=== PATIENT | male | born 1980 | race Caucasian/White ===

== ENCOUNTER 2018-06-05 17:47 | Emergency (ER) | payer MEDICAID ==
[~2018-06-05] VITALS: Ht 180.3 cm; Wt 59.4 kg
[~2018-06-05 17:47] MED LIST: ASPI-482 PO; CALC200T3 PO; HYDR100C2 PO; LOPE2CAP PO; METO-269 PO; NITR0.4T22 SL; OLAN5TAB3 PO; OXCA150T3 PO; OXCA300T3 PO
[2018-06-05 18:57] LABS: BASO % 0 % (0-3); EOS # 0.2 x10^3/uL (0.0-0.7); EOS % 3 % (0-3); HEMOGLOBIN 13.6 g/dL (13.0-17.5); LYMPH % 33 % (24-48); MEAN CORPUSCULAR HEMOGLOBIN 31 pg (25-35); MEAN CORPUSCULAR HGB CONC 35 g/dL (31-37); MEAN CORPUSCULAR VOLUME 89 fL (79-100); MONO # 0.7 x10^3/uL (0.0-1.1); MONO % 11 % (0-9); NEUT # 3.2 x10^3uL (1.8-7.7); NEUT % 54 % (31-73); PLATELET COUNT 269 x10^3/uL (140-400); RED BLOOD COUNT 4.37 x10^6/uL (4.30-5.70)
[2018-06-05 19:10] LABS: CALCIUM 8.9 mg/dL (8.5-10.1); CREATININE 0.8 mg/dL (0.7-1.3); GFR 107.1; POTASSIUM 3.5 mmol/L (3.5-5.1)
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
[2018-06-05 19:16] LABS: ALBUMIN 3.1 g/dL (3.4-5.0); ALBUMIN/GLOBULIN RATIO 0.8 (1.0-1.7); TOTAL BILIRUBIN 0.2 mg/dL (0.2-1.0)
[2018-06-05 22:30] VITALS: BP 114/67
== END 2018-06-05 22:30 | disposition home or self-care (01) ==
LOC: ER 17:47
DX: F20.9 Schizophrenia, unspecified (principal); G40.909 Epilepsy, unspecified, not intractable, without status epilepticus; E78.00 Pure hypercholesterolemia, unspecified; I25.2 Old myocardial infarction; F43.10 Post-traumatic stress disorder, unspecified; F32.9 Major depressive disorder, single episode, unspecified; F17.200 Nicotine dependence, unspecified, uncomplicated; Z95.5 Presence of coronary angioplasty implant and graft; Z88.8 Allergy status to other drugs, medicaments and biological substances; Z91.041 Radiographic dye allergy status; Z88.5 Allergy status to narcotic agent; Z88.0 Allergy status to penicillin; Z91.013 Allergy to seafood
CPT/HCPCS: 36415; 80053; 85025; 99284

== ENCOUNTER 2018-06-09 21:08 | Emergency (ER) | payer MEDICAID ==
[~2018-06-09] VITALS: Ht 170.2 cm; Wt 59.4 kg
[2018-06-09] MEDS: levETIRAcetam 1,000 MG in IV DEXTROSE 5% 100ML 100 ML IV ONE (21:56)
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
[2018-06-09] MEDS ORDERED: LEVE500T56 PO (22:06)
[2018-06-09 23:00] VITALS: BP 91/53
== END 2018-06-10 00:35 | disposition home or self-care (01) ==
LOC: ER 21:08
DX: G40.909 Epilepsy, unspecified, not intractable, without status epilepticus (principal); M19.90 Unspecified osteoarthritis, unspecified site; F32.9 Major depressive disorder, single episode, unspecified; E78.00 Pure hypercholesterolemia, unspecified; I25.2 Old myocardial infarction; F17.210 Nicotine dependence, cigarettes, uncomplicated; Z88.0 Allergy status to penicillin; Z88.8 Allergy status to other drugs, medicaments and biological substances; Z91.041 Radiographic dye allergy status; Z91.013 Allergy to seafood
CPT/HCPCS: 96365; 96366; 99285; J1953

== ENCOUNTER 2019-05-19 15:43 | Observation (INO) | payer SELFPAY ==
[~2019-05-19] VITALS: Ht 180.3 cm; Wt 80.4 kg
[~2019-05-19 15:43] MED LIST changes: +LEVE500T56 PO
--- NOTE | 2019-05-19 16:09 | PHYS DOC ---
Past Medical History Past Medical History: Arthritis, Depression, High Cholesterol, [place], Seizure, Schizophrenia, Other Additional Past Medical Histor: PTSD,GASTRITIS,MILD INTELLECTUAL,L VENT EF LOW,EPILEPSY Past Surgical History: Angioplasty, Other Additional Past Surgical Histo: CARDIAC XTENTS,L LEG BX Smoking: Cigarettes Alcohol Use: None Drug Use: None Adult General Chief Complaint Chief Complaint: CHEST PAIN HPI HPI Patient is a 39-year-old male who presents to the emergency department for evaluation. He states for the past hour has been having sharp anterior chest discomfort radiating down his left arm, with a pressure component as well. The p ain feels similar to her prior "heart attack" that he has had. He has not had any shortness of breath. There are no alleviating or exacerbating factors to his symptoms. He states he the pain feels the same as his prior episode of cardiac chest pain, where he had a stent placed in [place] in June 2018. He was given 324 mg of aspirin by EMS prior to arrival. He denies any shortness of breath, diaphoresis, nausea, or vomiting. There are no alleviating or exacerbating factors to his symptoms otherwise. Review of Systems Review of Systems Constitutional: Denies fever or chills [] Eyes: Denies change in visual acuity, redness, or eye pain [] HENT: Denies nasal congestion or sore throat [] Respiratory: Denies cough or shortness of breath [] Cardiovascular: No additional information not addressed in HPI [] GI: Denies abdominal pain, nausea, vomiting, bloody stools or diarrhea [] : Denies dysuria or hematuria [] Musculoskeletal: Denies back pain or joint pain [] Integument: Denies rash or skin lesions [] Neurologic: Denies headache, focal weakness or sensory changes [] Endocrine: Denies polyuria or polydipsia [] All other systems were reviewed and found to be within normal limits, except as documented in this note. Current Medications Current Medications Current Medications Medications (Trade) Dose Ordered Sig/Nell Start Time Stop Time Status Last Admin Dose Admin Aspirin (Children'S Aspirin) 324 mg 1X ONCE 05/19/19 16:30 05/19/19 16:31 DC Allergies Allergies Allergies Coded Allergies Type Severity Reaction Last Updated Verified Iodine and Iodide Containing Produc Allergy Intermediate hives 04/22/17 Yes Penicillins Allergy Intermediate Hives 10/31/18 Yes broccoli Allergy Intermediate 06/05/18 Yes morphine Allergy Intermediate 06/05/18 Yes shellfish derived Allergy Intermediate 06/05/18 Yes chlorpromazine Adverse Reaction Intermediate sweats 04/22/17 Yes Physical Exam Physical Exam PHYSICAL EXAM: CONSTITUTIONAL: Well developed, well nourished HEAD: normocephalic, atraumatic EENT: PERRL, EOMI. Conjunctivae normal color, sclerae non-icteric; moist mucous membranes. NECK: Supple, non-tender; no meningismus. LUNGS: Lungs CTA, breathing even and unlabored. Normal air movement. HEART: Regular rate and rhythm, no murmur CHEST: No deformity; non-tender ABDOMEN: The abdomen is soft, and non-tender, no masses or bruits. EXTREM: Normal ROM; no deformity, no calf tenderness. Normal pulses palpable in all extremities. There is no pedal edema. SKIN: No rash; no diaphoresis NEURO: Alert; normal speech and cognition; CN's grossly intact; strength grossly intact without focal deficit. BACK: No CVA TTP. Current Patient Data Vital Signs Vital Signs Date Time Temp Pulse Resp B/P (MAP) Pulse Ox O2 Delivery O2 Flow Rate FiO2 05/19/19 15:50 97.9 89 19 124/73 (90) 99 Room Air 97.9 Lab Values Laboratory Tests Test 05/19/19 16:05 05/19/19 16:40 White Blood Count 4.0 x10^3/uL (4.0-11.0) Red Blood Count 4.37 x10^6/uL (4.30-5.70) Hemoglobin 13.6 g/dL (13.0-17.5) Hematocrit 39.7 % (39.0-53.0) Mean Corpuscular Volume 91 fL (79-100) Mean Corpuscular Hemoglobin 31 pg (25-35) Mean Corpuscular Hemoglobin Concent 34 g/dL (31-37) Red Cell Distribution Width 13.2 % (11.5-14.5) Platelet Count 168 x10^3/uL (140-400) Neutrophils (%) (Auto) 59 % (31-73) Lymphocytes (%) (Auto) 29 % (24-48) Monocytes (%) (Auto) 11 % (0-9) H Eosinophils (%) (Auto) 1 % (0-3) Basophils (%) (Auto) 1 % (0-3) Neutrophils # (Auto) 2.3 x10^3/uL (1.8-7.7) Lymphocytes # (Auto) 1.2 x10^3/uL (1.0-4.8) Monocytes # (Auto) 0.4 x10^3/uL (0.0-1.1) Eosinophils # (Auto) 0.0 x10^3/uL (0.0-0.7) Basophils # (Auto) 0.0 x10^3/uL (0.0-0.2) Prothrombin Time 12.4 SEC (11.7-14.0) Prothrombin Time INR 1.0 (0.8-1.1) Laboratory Tests 05/19/19 16:05 EKG EKG []Normal sinus rhythm at a rate of 89 bpm, normal axis, normal intervals. There are no acute ischemic ST/T changes. Radiology/Procedures Radiology/Procedures PROCEDURE: PORTABLE CHEST 1V PORTABLE CHEST 1V Clinical indications: Chest pain today. COMPARISON: April 22, 2017. Findings: No acute lung infiltrate or pleural effusion or pulmonary edema or lung mass or pneumothorax is seen. The heart size, pulmonary vasculature, mediastinum and both derick are unremarkable. Impression: No acute radiographic abnormality is seen. [] Course & Med Decision Making Course & Med Decision Making Pertinent Labs and Imaging studies reviewed. (See chart for details) [] 5:00 PM:The patient's condition remains stable. I spoke with the hospitalist, who accepted the patient to the hospital for further evaluation and treatment. Dragon Disclaimer Dragon Disclaimer This electronic medical record was generated, in whole or in part, using a voice recognition dictation system. Departure Departure Impression: Primary Impression: Chest pain Disposition: ADMITTED INPATIENT Admitting Physician: HIMRobin Condition: STABLE Referrals: NO PCP (PCP) JAMESON GOLDBERG MD May 19, 2019 16:09
[2019-05-19 16:14] LABS: BASO % 1 % (0-3); EOS % 1 % (0-3); HEMATOCRIT 39.7 % (39.0-53.0); HEMOGLOBIN 13.6 g/dL (13.0-17.5); LYMPH # 1.2 x10^3/uL (1.0-4.8); LYMPH % 29 % (24-48); MEAN CORPUSCULAR HEMOGLOBIN 31 pg (25-35); MEAN CORPUSCULAR HGB CONC 34 g/dL (31-37); MEAN CORPUSCULAR VOLUME 91 fL (79-100); MONO # 0.4 x10^3/uL (0.0-1.1); MONO % 11 % (0-9); NEUT # 2.3 x10^3/uL (1.8-7.7); NEUT % 59 % (31-73); PLATELET COUNT 168 x10^3/uL (140-400); RED BLOOD COUNT 4.37 x10^6/uL (4.30-5.70); RED CELL DISTRIBUTION WIDTH 13.2 % (11.5-14.5)
--- NOTE | 2019-05-19 16:26 | EKG ---
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
[2019-05-19] MEDS ORDERED: ASPIRIN CHEWABLE 81 MG TABLET. PO ONE (16:30)
--- NOTE | 2019-05-19 16:32 | RAD ---
PORTABLE CHEST 1V Clinical indications: Chest pain today. COMPARISON: April 22, 2017. Findings: No acute lung infiltrate or pleural effusion or pulmonary edema or lung mass or pneumothorax is seen. The heart size, pulmonary vasculature, mediastinum and both derick are unremarkable. Impression: No acute radiographic abnormality is seen. Electronically signed by: Tanvir Avilez MD (05/19/2019 4:28 PM) [id number]
[2019-05-19 16:54] LABS: PROTHROMBIN TIME PATIENT 12.4 SEC (11.7-14.0)
[2019-05-19 16:58] LABS: CALCIUM 9.2 mg/dL (8.5-10.1); CREATININE 0.7 mg/dL (0.7-1.3); GFR 124.3; POTASSIUM 3.9 mmol/L (3.5-5.1)
[2019-05-19 17:04] LABS: ALBUMIN 3.3 g/dL (3.4-5.0); TOTAL BILIRUBIN 0.2 mg/dL (0.2-1.0); TOTAL PROTEIN 6.6 g/dL (6.4-8.2)
[2019-05-19] MEDS ORDERED: NITROGLYCERIN OINT 1 GM PACKET. TP ONE (17:15)
[2019-05-19] MEDS ORDERED: fentaNYL PF VIAL 100 MCG/2 ML VIAL IVP PRN (17:30)
[2019-05-19] MEDS ORDERED: NITROGLYCERIN SUBLINGUAL 0.4 MG BOTTLE OF 25. SL PRN (17:30)
[2019-05-19] MEDS ORDERED: ONDANSETRON PF 4 MG/2 ML VIAL. IVP PRN (17:30)
[2019-05-19] MEDS ORDERED: guaiFENesin DM 200MG/20MG 10 ML SYRUP PO PRN (17:30)
[2019-05-19] MEDS ORDERED: traMADol 50 MG TABLET PO PRN (17:30)
[2019-05-19] MEDS ORDERED: LOPERAMIDE 2 MG CAPSULE PO PRN (17:30)
[2019-05-19] MEDS ORDERED: ZOLPIDEM 5 MG TABLET. PO PRN (17:30)
[2019-05-19] MEDS ORDERED: ACETAMINOPHEN 500 MG TABLET PO PRN (17:30)
[2019-05-19] MEDS ORDERED: NICOTINE 21MG PATCH. TD PRN (17:30)
[2019-05-19] MEDS ORDERED: ALBUTEROL SULFATE 2.5 MG/3 ML NEBU. NEB PRN (17:30)
[2019-05-19] MEDS ORDERED: CALCIUM CARBONATE 500 MG TAB.CHEW PO PRN (17:30)
[2019-05-19 19:39] VITALS: BP 137/79
--- NOTE | 2019-05-19 19:43 | PDOC1 ---
History and Physical Date of Admission Date of Admission DATE: 05/19/19 TIME: 19:37 Identification/Chief Complaint Chief Complaint cp at rest Source Source: Caregiver, Chart review, Patient History of Present Illness History of Present Illness Homeless, had left sided CP while waiting for his ride today, radiated to left arm, no presyncopal or diaphoresis sxs. HAs 1 CAD stent done in [place] 2017. SMoker, FAm hx CAD, non DM, ODd behavior, on certain meds at home for this. TRop and CXR , EKG reassuring. Admitted for CP r.o. HAs psoriasis plaques, used hydrocortisone cream in past, ran out Past Medical History Cardiovascular: CHF, HTN, CA, Hyperlipidemia CENTRAL NERVOUS SYSTEM: Seizure GI: GERD Heme/Onc: No pertinent hx Hepatobiliary: No pertinent hx Psych: Anxiety, Depression, Schizophrenia, Other Rheumatologic: No pertinent hx Infectious disease: No pertinent hx Renal/: No pertinent hx Endocrine: No pertinent hx Dermatology: Other (psoriasis) Past Surgical History Past Surgical History: Other (CAD 1 stent, thigh rt biopsy ) Family History Family History: Diabetes, Heart Disease Social History Smoke: No ALCOHOL: none Drugs: Marijuana Current Medications Current Medications Current Medications Aspirin (Children'S Aspirin) 324 mg 1X ONCE PO ; Start 05/19/19 at 16:30; Stop 05/19/19 at 16:31; Status DC Nitroglycerin (Nitro-Bid Oint) 1 inch 1X ONCE TP Last administered on 05/19/19at 17:49; Start 05/19/19 at 17:15; Stop 05/19/19 at 17:16; Status DC Acetaminophen (Tylenol) 500 mg PRN Q6HRS PRN PO MILD PAIN / TEMP; Start 05/19/19 at 17:30 Tramadol HCl (Ultram) 50 mg PRN Q6HRS PRN PO PAIN; Start 05/19/19 at 17:30; Status UNV Fentanyl Citrate (Fentanyl 2ml Vial) 50 mcg PRN Q2HR PRN IVP MODERATE TO SEVERE PAIN; Start 05/19/19 at 17:30 Zolpidem Tartrate (Ambien) 5 mg PRN QHS PRN PO INSOMNIA; Start 05/19/19 at 17:30 Nicotine (Nicoderm Cq 21mg) 1 patch PRN DAILY PRN TD SMOKING CESSATION; Start 05/19/19 at 17:30 Ondansetron HCl (Zofran) 4 mg PRN Q6HRS PRN IVP NAUSEA/VOMITING; Start 05/19/19 at 17:30 Calcium Carbonate/ Glycine (Tums) 500 mg PRN AFTMEALHC PRN PO INDIGESTION; Start 05/19/19 at 17:30 Guaifenesin (Robitussin Dm) 10 ml PRN Q6HRS PRN PO COUGH; Start 05/19/19 at 17:30 Nitroglycerin (Nitrostat) 0.4 mg PRN Q5MIN PRN SL CHEST PAIN; Start 05/19/19 at 17:30 Albuterol Sulfate (Ventolin Neb Soln) 2.5 mg PRN Q4HRS PRN NEB SHORTNESS OF BREATH; Start 05/19/19 at 17:30 Aspirin (Ecotrin) 81 mg DAILY PO ; Start 05/20/19 at 09:00 Calcium Carbonate/ Glycine (Tums) 500 mg TID PO ; Start 05/19/19 at 21:00 Levetiracetam (Keppra) 750 mg BID PO ; Start 05/19/19 at 21:00 Loperamide HCl (Imodium) 2 mg PRN QID PRN PO DIARRHEA; Start 05/19/19 at 17:30 Olanzapine (ZyPREXA) 5 mg DAILY PO ; Start 05/20/19 at 09:00 Oxcarbazepine (Trileptal) 300 mg QHS PO ; Start 05/19/19 at 21:00 Oxcarbazepine (Trileptal) 300 mg DAILY PO ; Start 05/20/19 at 09:00 Hydroxyzine HCl (Atarax) 100 mg Q6HRS PO ; Start 05/19/19 at 18:00 Non-Formulary Medication (Metoprolol Succinate (Toprol Xl)) 1 tab BID PO ; Start 05/19/19 at 21:00; Status UNV Active Scripts Active Keppra (Levetiracetam) 500 Mg Tablet 1.5 Tab PO BID Reported Loperamide (Loperamide Hcl) 2 Mg Capsule 2 Mg PO PRN PRN Trileptal (Oxcarbazepine) 300 Mg Tablet 300 Mg PO DAILY Hydroxyzine Pamoate 100 Mg Capsule 100 Mg PO Q6HRS Tums (Calcium Carbonate) 200 Mg Tab.chew 200 Mg PO TID Zyprexa (Olanzapine) 5 Mg Tablet 5 Mg PO DAILY Trileptal (Oxcarbazepine) 300 Mg Tablet 1 Tab PO QHS NITROGLYCERIN SubLingual (Nitroglycerin) 0.4 Mg Tab.subl 0.4 Mg SL PRN Q5MIN PRN Aspir 81 (Aspirin) 81 Mg Tablet.dr 1 Tab PO DAILY Toprol Xl (Metoprolol Succinate) 50 Mg Tab.er.24h 1 Tab PO BID Allergies Allergies: Coded Allergies: Iodine and Iodide Containing Produc (Verified Allergy, Intermediate, hives, 04/22/17) Penicillins (Verified Allergy, Intermediate, Hives, 06/09/18) broccoli (Verified Allergy, Intermediate, 06/05/18) morphine (Verified Allergy, Intermediate, 06/05/18) shellfish derived (Verified Allergy, Intermediate, 06/05/18) chlorpromazine (Verified Adverse Reaction, Intermediate, sweats, 04/22/17) ROS Review of System as per hPI, all else is neg Physical Exam General: Alert, Oriented X3, Cooperative, No acute distress HEENT: Atraumatic, PERRLA, EOMI Lungs: Clear to auscultation, Normal air movement Heart: S1S2, RRR, no thrills, no rubs, no gallops, no murmurs Cardiovascular: S1, S2 Abdomen: Normal bowel sounds, Soft, No tenderness, No hepatosplenomegaly, No masses Male Genitals Exam: normal genitalia, normal prostate Rectal Exam: not examined PELVIC: Nml ext genitalia Extremities: No clubbing, No cyanosis, No edema, Normal pulses, No t enderness/swelling, Other (psoriasis plaques, scaly, silver) Neuro: Normal gait, Normal speech, Strength at 5/5 X4 ext, Normal tone, Sensation intact, Cranial nerves 3-12 NL, Reflexes 2+ Vitals Vitals Vital Signs Date Time Temp Pulse Resp B/P (MAP) Pulse Ox O2 Delivery O2 Flow Rate FiO2 05/19/19 17:49 99 123/72 05/19/19 17:47 16 100 Room Air 05/19/19 15:50 97.9 97.9 Labs Labs Laboratory Tests Test 05/19/19 16:05 05/19/19 16:40 White Blood Count 4.0 x10^3/uL (4.0-11.0) Red Blood Count 4.37 x10^6/uL (4.30-5.70) Hemoglobin 13.6 g/dL (13.0-17.5) Hematocrit 39.7 % (39.0-53.0) Mean Corpuscular Volume 91 fL (79-100) Mean Corpuscular Hemoglobin 31 pg (25-35) Mean Corpuscular Hemoglobin Concent 34 g/dL (31-37) Red Cell Distribution Width 13.2 % (11.5-14.5) Platelet Count 168 x10^3/uL (140-400) Neutrophils (%) (Auto) 59 % (31-73) Lymphocytes (%) (Auto) 29 % (24-48) Monocytes (%) (Auto) 11 % (0-9) Eosinophils (%) (Auto) 1 % (0-3) Basophils (%) (Auto) 1 % (0-3) Neutrophils # (Auto) 2.3 x10^3/uL (1.8-7.7) Lymphocytes # (Auto) 1.2 x10^3/uL (1.0-4.8) Monocytes # (Auto) 0.4 x10^3/uL (0.0-1.1) Eosinophils # (Auto) 0.0 x10^3/uL (0.0-0.7) Basophils # (Auto) 0.0 x10^3/uL (0.0-0.2) Prothrombin Time 12.4 SEC (11.7-14.0) Prothromb Time International Ratio 1.0 (0.8-1.1) Sodium Level 148 mmol/L (136-145) Potassium Level 3.9 mmol/L (3.5-5.1) Chloride Level 107 mmol/L (98-107) Carbon Dioxide Level 33 mmol/L (21-32) Anion Gap 8 (6-14) Blood Urea Nitrogen 15 mg/dL (8-26) Creatinine 0.7 mg/dL (0.7-1.3) Estimated GFR (Cockcroft-Gault) 124.3 BUN/Creatinine Ratio 21 (6-20) Glucose Level 86 mg/dL (70-99) Calcium Level 9.2 mg/dL (8.5-10.1) Total Bilirubin 0.2 mg/dL (0.2-1.0) Aspartate Amino Transf (AST/SGOT) 12 U/L (15-37) Alanine Aminotransferase (ALT/SGPT) 18 U/L (16-63) Alkaline Phosphatase 93 U/L (46-116) Creatine Kinase 115 U/L (39-308) Creatine Kinase MB (Mass) 1.4 ng/mL (0.0-3.6) Creatine Kinase MB Relative Index 1.2 % (0-4) Troponin I Quantitative < 0.017 ng/mL (0.000-0.055) UB-Ley-V-Type Natriuretic Peptide 37 pg/mL (0-124) Total Protein 6.6 g/dL (6.4-8.2) Albumin 3.3 g/dL (3.4-5.0) Albumin/Globulin Ratio 1.0 (1.0-1.7) Laboratory Tests Test 05/19/19 16:05 05/19/19 16:40 White Blood Count 4.0 x10^3/uL (4.0-11.0) Red Blood Count 4.37 x10^6/uL (4.30-5.70) Hemoglobin 13.6 g/dL (13.0-17.5) Hematocrit 39.7 % (39.0-53.0) Mean Corpuscular Volume 91 fL (79-100) Mean Corpuscular Hemoglobin 31 pg (25-35) Mean Corpuscular Hemoglobin Concent 34 g/dL (31-37) Red Cell Distribution Width 13.2 % (11.5-14.5) Platelet Count 168 x10^3/uL (140-400) Neutrophils (%) (Auto) 59 % (31-73) Lymphocytes (%) (Auto) 29 % (24-48) Monocytes (%) (Auto) 11 % (0-9) Eosinophils (%) (Auto) 1 % (0-3) Basophils (%) (Auto) 1 % (0-3) Neutrophils # (Auto) 2.3 x10^3/uL (1.8-7.7) Lymphocytes # (Auto) 1.2 x10^3/uL (1.0-4.8) Monocytes # (Auto) 0.4 x10^3/uL (0.0-1.1) Eosinophils # (Auto) 0.0 x10^3/uL (0.0-0.7) Basophils # (Auto) 0.0 x10^3/uL (0.0-0.2) Prothrombin Time 12.4 SEC (11.7-14.0) Prothromb Time International Ratio 1.0 (0.8-1.1) Sodium Level 148 mmol/L (136-145) Potassium Level 3.9 mmol/L (3.5-5.1) Chloride Level 107 mmol/L (98-107) Carbon Dioxide Level 33 mmol/L (21-32) Anion Gap 8 (6-14) Blood Urea Nitrogen 15 mg/dL (8-26) Creatinine 0.7 mg/dL (0.7-1.3) Estimated GFR (Cockcroft-Gault) 124.3 BUN/Creatinine Ratio 21 (6-20) Glucose Level 86 mg/dL (70-99) Calcium Level 9.2 mg/dL (8.5-10.1) Total Bilirubin 0.2 mg/dL (0.2-1.0) Aspartate Amino Transf (AST/SGOT) 12 U/L (15-37) Alanine Aminotransferase (ALT/SGPT) 18 U/L (16-63) Alkaline Phosphatase 93 U/L (46-116) Creatine Kinase 115 U/L (39-308) Creatine Kinase MB (Mass) 1.4 ng/mL (0.0-3.6) Creatine Kinase MB Relative Index 1.2 % (0-4) Troponin I Quantitative < 0.017 ng/mL (0.000-0.055) EB-Rsg-L-Type Natriuretic Peptide 37 pg/mL (0-124) Total Protein 6.6 g/dL (6.4-8.2) Albumin 3.3 g/dL (3.4-5.0) Albumin/Globulin Ratio 1.0 (1.0-1.7) VTE Prophylaxis Ordered VTE Prophylaxis Devices: Yes VTE Pharmacological Prophylaxi: Yes Assessment/Plan Assessment/Plan CP in an adult at rest Atypical CP CAD with 1 cardiac stent - 2017 [place] - claims on ASA 81 and eliquis ONCE A DAY - we are verifying with his pharmacy SMoker - yassine patch, counselled Fam hx CAD Psoriasis - dovonex cream unavail, do hydrocort cream instead FULL CODE seen at DAYANA JEAN BAPTISTE MD May 19, 2019 19:43
[2019-05-19] MEDS ORDERED: HYDROCORTISONE 1% TOPICAL OINTMENT 30GM TUBE. TP PRN (19:45)
[2019-05-19] MEDS: levETIRAcetam 500 MG TABLET PO SCH (20:56)
[2019-05-19] MEDS: hydrOXYzine 25 MG TABLET PO SCH (20:56)
[2019-05-19] MEDS: CALCIUM CARBONATE 500 MG TAB.CHEW PO SCH (20:56)
[2019-05-19] MEDS: APIXABAN 5 MG TABLET. PO SCH (20:56)
[2019-05-19] MEDS ORDERED: OXcarbazepine 300 MG TABLET PO SCH (21:00)
[2019-05-19] MEDS: NON FORMULARY ITEM (Metoprolol Succinate (Toprol Xl) 1 TAB) PO SCH (21:00)
[2019-05-19 22:32] VITALS: BP 102/54
[2019-05-20 03:00] VITALS: BP 105/67
[2019-05-20] MEDS: hydrOXYzine 25 MG TABLET PO SCH ×4 (06:00→13:36)
[2019-05-20 07:00] VITALS: BP 95/56
[2019-05-20] MEDS: CALCIUM CARBONATE 500 MG TAB.CHEW PO SCH ×2 (08:45→13:36)
[2019-05-20] MEDS: levETIRAcetam 500 MG TABLET PO SCH (08:46)
[2019-05-20] MEDS: APIXABAN 5 MG TABLET. PO SCH (08:46)
[2019-05-20] MEDS ORDERED: DIVA500T2 PO ×2 (08:50)
[2019-05-20] MEDS ORDERED: ALBU2.5V8 IH (08:52)
[2019-05-20] MEDS ORDERED: ASPIRIN ENTERIC COATED 81 MG TABLET.DR. PO SCH (09:00)
[2019-05-20] MEDS ORDERED: OXcarbazepine 300 MG TABLET PO SCH (09:00)
[2019-05-20] MEDS ORDERED: OLANZapine 5 MG TABLET PO SCH (09:00)
[2019-05-20] MEDS: NON FORMULARY ITEM (Metoprolol Succinate (Toprol Xl) 1 TAB) PO SCH (09:00)
--- NOTE | 2019-05-20 10:55 | PDOC ---
[employer] PROGRESS NOTE Chief Complaint Chief Complaint Chest pain History of Present Illness History of Present Illness 05/20/19 Pt seen and examined Pt was sitting up watching TV and eating breakfast Pt states he is homeless and doesn't have somewhere to go. He wants a hotel voucher if possible Denies any pain today and is feeling better DW RN Vitals/I&O Vitals/I&O: Vital Signs Date Time Temp Pulse Resp B/P (MAP) Pulse Ox O2 Delivery O2 Flow Rate FiO2 05/20/19 08:00 Room Air 05/20/19 07:00 97.3 76 20 95/56 (69) 97 97.3 I & O 05/19/19 05/19/19 05/20/19 14:59 22:59 06:59 Intake Total 400 ml 720 ml Balance 400 ml 720 ml Physical Exam General: Alert, Oriented X3, Cooperative, No acute distress Abdomen: Normal bowel sounds, Soft, No tenderness, No hepatosplenomegaly, No masses Extremities: No clubbing, No cyanosis, No edema, Normal pulses, No tenderness/swelling, Other (psoriasis plaques, scaly, silver) Labs Labs: Laboratory Tests Test 05/19/19 16:05 05/19/19 16:40 05/19/19 22:00 05/20/19 02:30 White Blood Count 4.0 x10^3/uL (4.0-11.0) Red Blood Count 4.37 x10^6/uL (4.30-5.70) Hemoglobin 13.6 g/dL (13.0-17.5) Hematocrit 39.7 % (39.0-53.0) Mean Corpuscular Volume 91 fL (79-100) Mean Corpuscular Hemoglobin 31 pg (25-35) Mean Corpuscular Hemoglobin Concent 34 g/dL (31-37) Red Cell Distribution Width 13.2 % (11.5-14.5) Platelet Count 168 x10^3/uL (140-400) Neutrophils (%) (Auto) 59 % (31-73) Lymphocytes (%) (Auto) 29 % (24-48) Monocytes (%) (Auto) 11 % (0-9) Eosinophils (%) (Auto) 1 % (0-3) Basophils (%) (Auto) 1 % (0-3) Neutrophils # (Auto) 2.3 x10^3/uL (1.8-7.7) Lymphocytes # (Auto) 1.2 x10^3/uL (1.0-4.8) Monocytes # (Auto) 0.4 x10^3/uL (0.0-1.1) Eosinophils # (Auto) 0.0 x10^3/uL (0.0-0.7) Basophils # (Auto) 0.0 x10^3/uL (0.0-0.2) Prothrombin Time 12.4 SEC (11.7-14.0) Prothromb Time International Ratio 1.0 (0.8-1.1) Sodium Level 148 mmol/L (136-145) Potassium Level 3.9 mmol/L (3.5-5.1) Chloride Level 107 mmol/L (98-107) Carbon Dioxide Level 33 mmol/L (21-32) Anion Gap 8 (6-14) Blood Urea Nitrogen 15 mg/dL (8-26) Creatinine 0.7 mg/dL (0.7-1.3) Estimated GFR (Cockcroft-Gault) 124.3 BUN/Creatinine Ratio 21 (6-20) Glucose Level 86 mg/dL (70-99) Calcium Level 9.2 mg/dL (8.5-10.1) Total Bilirubin 0.2 mg/dL (0.2-1.0) Aspartate Amino Transf (AST/SGOT) 12 U/L (15-37) Alanine Aminotransferase (ALT/SGPT) 18 U/L (16-63) Alkaline Phosphatase 93 U/L (46-116) Creatine Kinase 115 U/L (39-308) Creatine Kinase MB (Mass) 1.4 ng/mL (0.0-3.6) Creatine Kinase MB Relative Index 1.2 % (0-4) Troponin I Quantitative < 0.017 ng/mL (0.000-0.055) < 0.017 ng/mL (0.000-0.055) < 0.017 ng/mL (0.000-0.055) ZV-Smm-G-Type Natriuretic Peptide 37 pg/mL (0-124) Total Protein 6.6 g/dL (6.4-8.2) Albumin 3.3 g/dL (3.4-5.0) Albumin/Globulin Ratio 1.0 (1.0-1.7) Test 05/20/19 04:35 05/20/19 06:30 Troponin I Quantitative < 0.017 ng/mL (0.000-0.055) < 0.017 ng/mL (0.000-0.055) Review of Systems Review of Systems: Denies n/v/d Denies shortness of breath Assessment and Plan Assessmemt and Plan Assessment Chest pain Previous stent CAD Smoker Family history of CAD Psoriasis Plan Cardiac monitoring DVT prophylaxis Consult SS to determine living arrangements Home meds Full code Discharge deposition pending Comment Review of Relevant I have reviewed the following items reena (where applicable) has been applied. Medications: Current Medications Medications (Trade) Dose Ordered Sig/Nell Route PRN Reason Start Time Stop Time Status Last Admin Dose Admin Nitroglycerin (Nitro-Bid Oint) 1 inch 1X ONCE TP 05/19/19 17:15 05/19/19 17:16 DC 05/19/19 17:49 Aspirin (Ecotrin) 81 mg DAILY PO 05/20/19 09:00 05/20/19 08:46 Calcium Carbonate/ Glycine (Tums) 500 mg TID PO 05/19/19 21:00 05/20/19 08:45 Levetiracetam (Keppra) 750 mg BID PO 05/19/19 21:00 05/20/19 08:46 Olanzapine (ZyPREXA) 5 mg DAILY PO 05/20/19 09:00 05/20/19 08:44 Oxcarbazepine (Trileptal) 300 mg QHS PO 05/19/19 21:00 05/19/19 20:56 Oxcarbazepine (Trileptal) 300 mg DAILY PO 05/20/19 09:00 05/20/19 08:45 Hydroxyzine HCl (Atarax) 100 mg Q6HRS PO 05/19/19 18:00 05/20/19 08:47 Apixaban (Eliquis) 5 mg BID PO 05/19/19 21:00 05/20/19 08:46 MEGHNA BOOTHE K III DO May 20, 2019 10:55
[2019-05-20 11:00] VITALS: BP 95/53
--- NOTE | 2019-05-20 13:07 | NUR ---
SS following for discharge planning. SS reviewed pt chart. Pt is self pay pt and homeless. HCFS following for self pay status. Discharge order on the chart for home with self care. SS met with pt to discuss discharge planning. Pt requested cab voucher be provided for his friends home, [address], [facility] [place] [address]. Pt's RN notified.
--- NOTE | 2019-05-20 15:05 | NUR ---
Discharge Note: VINOD JOHNSON Discharge instructions and discharge home medications reviewed with Patient and a copy given. All questions have been answered and understanding verbalized.
--- NOTE | 2019-05-21 08:52 | DS ---
DATE OF DISCHARGE: 05/20/2019 ADMISSION DIAGNOSIS: Chest pain with known coronary disease (he got a stent on 07/02/2018. DISCHARGE DIAGNOSIS: Resolving chest pain. HOSPITAL COURSE: The patient is a pleasant 39-year-old male, who had a cardiac stent placed in June of last year. Basically, he presented with chest pain. We admitted him and did a full cardiac workup. It is felt that he did not have any severe disease, perhaps this was atypical pain. We discharged to home with close outpatient followup. DISPOSITION: Home. ACTIVITY: As tolerated. DIET: Low sodium. MEDICATIONS: Please see the MRAD. TOTAL TIME: 32 minutes. MEGHNA BOOTHE DO DR: TEODORO/lisa JOB#: [id number] / [id number]
== END 2019-05-20 14:55 | disposition home or self-care (01) ==
LOC: ER 15:43 → 2 SOUTH 17:00
PROVIDERS: ADMIT Internal Medicine; ATTEND Internal Medicine
DX: R07.89 Other chest pain (principal); M19.90 Unspecified osteoarthritis, unspecified site; F32.9 Major depressive disorder, single episode, unspecified; E78.00 Pure hypercholesterolemia, unspecified; F20.9 Schizophrenia, unspecified; F43.10 Post-traumatic stress disorder, unspecified; E78.5 Hyperlipidemia, unspecified; K29.70 Gastritis, unspecified, without bleeding; F17.200 Nicotine dependence, unspecified, uncomplicated; I25.2 Old myocardial infarction; I25.10 Atherosclerotic heart disease of native coronary artery without angina pectoris; K21.9 Gastro-esophageal reflux disease without esophagitis; F41.9 Anxiety disorder, unspecified; I11.0 Hypertensive heart disease with heart failure; I50.9 Heart failure, unspecified; L40.9 Psoriasis, unspecified; G40.909 Epilepsy, unspecified, not intractable, without status epilepticus; Z82.49 Family history of ischemic heart disease and other diseases of the circulatory system; Z83.3 Family history of diabetes mellitus; Z59.0 Homelessness; Z95.5 Presence of coronary angioplasty implant and graft
CPT/HCPCS: 36415; 71045; 80053; 82553; 83880; 84484; 85025; 85610; 93005; 99284; G0378; G0379

== ENCOUNTER 2020-06-09 14:57 | Emergency (ER) | payer MEDICAID ==
[~2020-06-09] VITALS: Ht 180.3 cm; Wt 50.0 kg
[~2020-06-09 14:57] MED LIST changes: +ALBU2.5V8 IH; +DIVA500T2 PO
--- NOTE | 2020-06-09 16:03 | PHYS DOC ---
Past Medical History Past Medical History: Arthritis, Depression, High Cholesterol, MD, Seizure, Schizophrenia, Other Additional Past Medical Histor: PTSD,GASTRITIS,MILD INTELLECTUAL,L VENT EF LOW,EPILEPSY Past Surgical History: Angioplasty, Other Additional Past Surgical Histo: CARDIAC XTENTS,L LEG BX Smoking Status: Current Every Day Smoker Alcohol Use: None Drug Use: None General Adult EDM: Chief Complaint: PSYCH EVALUATION HPI: HPI: Patient is a 40 year old [f__sex] who presents with [] Review of Systems: Review of Systems: Constitutional: Denies fever or chills. [] Eyes: Denies change in visual acuity. [] HENT: Denies nasal congestion or sore throat. [] Respiratory: Denies cough or shortness of breath. [] Cardiovascular: Denies chest pain or edema. [] GI: Denies abdominal pain, nausea, vomiting, bloody stools or diarrhea. [] : Denies dysuria. [] Musculoskeletal: Denies back pain or joint pain. [] Integument: Denies rash. [] Neurologic: Denies headache, focal weakness or sensory changes. [] Endocrine: Denies polyuria or polydipsia. [] Lymphatic: Denies swollen glands. [] Psychiatric: Denies depression or anxiety. [] Heart Score: Risk Factors: Risk Factors: DM, Current or recent (<one month) smoker, HTN, HLP, family history of CAD, obesity. Risk Scores: Score 0 - 3: 2.5% MACE over next 6 weeks - Discharge Home Score 4 - 6: 20.3% MACE over next 6 weeks - Admit for Clinical Observation Score 7 - 10: 72.7% MACE over next 6 weeks - Early Invasive Strategies Allergies: Allergies: Allergies Coded Allergies Type Severity Reaction Last Updated Verified Iodine and Iodide Containing Produc Allergy Intermediate hives 04/22/17 Yes Penicillins Allergy Intermediate Hives 06/09/18 Yes broccoli Allergy Intermediate 06/05/18 Yes morphine Allergy Intermediate 06/05/18 Yes shellfish derived Allergy Intermediate 06/05/18 Yes chlorpromazine Adverse Reaction Intermediate sweats 04/22/17 Yes Physical Exam: PE: Constitutional: Well developed, well nourished, no acute distress, non-toxic appearance. [] HENT: Normocephalic, atraumatic, bilateral external ears normal, oropharynx moist, no oral exudates, nose normal. [] Eyes: PERRLA, EOMI, conjunctiva normal, no discharge. [] Neck: Normal range of motion, no tenderness, supple, no stridor. [] Cardiovascular:Heart rate regular rhythm, no murmur [] Lungs & Thorax: Bilateral breath sounds clear to auscultation [] Abdomen: Bowel sounds normal, soft, no tenderness, no masses, no pulsatile masses. [] Skin: Warm, dry, no erythema, no rash. [] Back: No tenderness, no CVA tenderness. [] Extremities: No tenderness, no cyanosis, no clubbing, ROM intact, no edema. [] Neurologic: Alert and oriented X 3, normal motor function, normal sensory function, no focal deficits noted. [] Psychologic: Affect normal, judgement normal, mood normal. [] Current Patient Data: Vital Signs: Vital Signs Date Time Temp Pulse Resp B/P (MAP) Pulse Ox O2 Delivery O2 Flow Rate FiO2 06/09/20 15:15 98.2 80 18 133/75 (94) 100 Room Air 98.2 EKG: EKG: [] Radiology/Procedures: Radiology/Procedures: [] Course & Med Decision Making: Course & Med Decision Making Pertinent Labs and Imaging studies reviewed. (See chart for details) Concern for underlying psych disease without any psychosis, self-neglect, danger to self or others. Pt has [facility]. Patient appears to be fabricating his history and knows what to say to get placement-suspect malingering for housing. Patient was assessed by psych loading machine operator helper who also agrees. Strict ED return precautions were given for suicidal ideations, homicidal ideations hallucinations or ps ychosis. Encouraged urgent outpatient follow-up with PMD and EKG. Life- threatening processes were considered but are low suspicion at this time, given history and physical exam. Pt was educated on all prescription medications and adverse effects. All patient's questions were answered and pt was stable at time of discharge. Life/limb-threatening differential includes but is not limited to, end organ damage/sepsis, head and neck injury, neurologic deficit, alcohol/drug ingestion, toxidrome, suicidal/homicidal ideations plans or attempts, psychosis or mental illness resulting in self neglect and inability to caare for self. I spoken with the patient and her caregivers. I explained the patient's condition, diagnoses and treatment plan based on the information available to me at this time. I have answered the patient and her caregiver's questions and addressed any concerns. The patient and her caregivers have a good understanding of patient's diagnosis, condition and treatment plan as can be expected at this point. Vital signs have been stable. Patient's condition is stable and appropriate for discharge from the emergency department. Patient will pursue further outpatient evaluation with primary care physician or other designated or consulting physician as outlined in the discharge instructions. The patient and/or caregivers are agreeable to this plan of care and follow-up instructions have been explained in detail. The patient and/or caregivers have received these instructions in written form and have expressed an understanding of the discharge instructions. The patient and/or caregivers are aware that any significant change of condition or worsening of symptoms should prompt immediate return to this or the closest emergency department or call to 1. [facility] Disclaimer: [facility] Disclaimer: This electronic medical record was generated, in whole or in part, using a voice recognition dictation system. Departure Departure Impression: Primary Impression: Homeless Additional Impression: Other and unspecified general psychiatric examination Disposition: 01 DC HOME SELF CARE/HOMELESS Condition: STABLE Referrals: NO PCP (PCP) FOLLOW UP WITH FAMILY MEDICINE: Family Medicine Address: [address] [facility], [address] [address] Patient Instructions: Schizophrenia Additional Instructions: FOLLOW UP WITH PSYCHIATRY: Dr. Umang Patel Psychiatry Specialist [address], [place] [address] EMERGENCY DEPARTMENT GENERAL DISCHARGE INSTRUCTIONS Thank you for coming to [facility] Emergency Department (ED) today and trusting us with you care. We trust that you had a positive experience in our Emergency Department. If you wish to speak to the department management, you may call the Director at [phone]. YOUR FOLLOW UP INSTRUCTIONS ARE FOLLOWS: 1. Do you have a private Doctor? If you do not have a private doctor, please ask for a resource list of physicians or clinics that may be able to assist you with follow up care. 2. The Emergency Physicain has interpreted your x-rays. The X-Ray specialist will also review them. If there is a change in the findings, you will be notified in 48 hours when at all possible. 3. A lab test or culture has been done, your results will be reviewed and you will be notified if you need a change in treatment. ADDITIONAL INSTRUCTIONS AND INFORMATION: 1. Your care today has been supervised by a physician who is specially trained in emergency care. Many problems require more than one evaluation for a complete diagnosis and treatment. We recommend that you schedule your follow up appointment as recommended to ensure complete treatment of you illness or injury. If you are unable to obtain follow up care and continue to have a problem, or if your condition worsens, we recommend that you return to the ED. 2. We are not able to safely determine your condition over the phone nor are we able to give sound medical advice over the phone. For these safety reasons, if you call for medical advice we will ask you to come to the ED for further evaluation. 3. If you have any questions regarding these discharge instructions please call the ED at [phone]. SAFETY INFORMATION: In the interest of safety, wellness, and injury prevention; we encourage you to wear your sealbelt, if you smoke; quite smoking, and we encourage family to use a protective helmet for bicycling and other sporting events that present an increased risk for head injury. IF YOUR SYMPTOMS WORSEN OR NEW SYMPTOMS DEVELOP, OR YOU HAVE CONCERNS ABOUT YOUR CONDITION; OR IF YOUR CONDITION WORSENS WHILE YOU ARE WAITING FOR YOUR FOLLOW UP APPOINTMENT; EITHER CONTACT YOUR PRIMARY CARE DOCTOR, THE PHYSICIAN WHOSE NAME AND NUMBER YOU WERE GIVEN, OR RETURN TO THE ED IMMEDIATELY. DANNIELLE PERSAUD DO Jun 09, 2020 16:03
[2020-06-09 16:05] LABS: BASO % 0 % (0-3); EOS # 0.1 x10^3/uL (0.0-0.7); EOS % 1 % (0-3); HEMATOCRIT 41.5 % (39.0-53.0); HEMOGLOBIN 13.9 g/dL (13.0-17.5); LYMPH # 1.8 x10^3/uL (1.0-4.8); LYMPH % 24 % (24-48); MEAN CORPUSCULAR HEMOGLOBIN 30 pg (25-35); MEAN CORPUSCULAR HGB CONC 33 g/dL (31-37); MEAN CORPUSCULAR VOLUME 89 fL (79-100); MONO # 0.6 x10^3/uL (0.0-1.1); MONO % 9 % (0-9); NEUT # 5.1 x10^3/uL (1.8-7.7); NEUT % 67 % (31-73); PLATELET COUNT 233 x10^3/uL (140-400); RED BLOOD COUNT 4.65 x10^6/uL (4.30-5.70); RED CELL DISTRIBUTION WIDTH 13.5 % (11.5-14.5); WHITE BLOOD COUNT 7.6 x10^3/uL (4.0-11.0)
[2020-06-09 16:17] LABS: CREATININE 0.9 mg/dL (0.7-1.3); GFR 92.5; POTASSIUM 3.3 mmol/L (3.5-5.1)
[2020-06-09 18:00] VITALS: BP 132/76
== END 2020-06-09 18:25 | disposition home or self-care (01) ==
LOC: ER 14:57
DX: Z04.6 Encounter for general psychiatric examination, requested by authority (principal); Z59.0 Homelessness; E78.00 Pure hypercholesterolemia, unspecified; F32.9 Major depressive disorder, single episode, unspecified; F20.9 Schizophrenia, unspecified; F43.10 Post-traumatic stress disorder, unspecified; I25.2 Old myocardial infarction; G40.909 Epilepsy, unspecified, not intractable, without status epilepticus; F17.200 Nicotine dependence, unspecified, uncomplicated; Z95.5 Presence of coronary angioplasty implant and graft; Z91.041 Radiographic dye allergy status; Z88.0 Allergy status to penicillin; Z88.5 Allergy status to narcotic agent; Z91.013 Allergy to seafood; Z91.018 Allergy to other foods
CPT/HCPCS: 36415; 80048; 85025; 99283; G0480; 99284

== ENCOUNTER 2020-11-11 04:48 | Emergency (ER) | payer MEDICAID ==
[~2020-11-11] VITALS: Ht 180.3 cm; Wt 57.0 kg
--- NOTE | 2020-11-11 05:30 | PHYS DOC ---
Past Medical History Past Medical History: Arthritis, Depression, High Cholesterol, [place], Seizure, Schizophrenia, Other Additional Past Medical Histor: PTSD,GASTRITIS,MILD INTELLECTUAL,L VENT EF LOW,EPILEPSY Past Surgical History: Angioplasty, Other Additional Past Surgical Histo: CARDIAC XTENTS,L LEG BX Smoking Status: Current Every Day Smoker Alcohol Use: None Drug Use: None General Adult EDM: Chief Complaint: PSYCH EVALUATION HPI: HPI: Patient is a 40 year [id number] male past medical history seizure blood clots presents by EMS for evaluation. Patient states prior to arrival he was at [facility] wanting to be evaluated due to depression and feeling hopeless. Patient was declined placement at [facility]. Patient also requesting refill for eliquis and keppra. Patient denies HI or SI. States feeling hopeless and depression due to interaction with friend. Review of Systems: Review of Systems: Constitutional: Denies fever or chills. [] Eyes: Denies change in visual acuity. [] HENT: Denies nasal congestion or sore throat. [] Respiratory: Denies cough or shortness of breath. [] Cardiovascular: Denies chest pain or edema. [] GI: Denies abdominal pain, nausea, vomiting, bloody stools or diarrhea. [] : Denies dysuria. [] Musculoskeletal: Denies back pain or joint pain. [] Integument: Denies rash. [] Neurologic: Denies headache, focal weakness or sensory changes. [] Endocrine: Denies polyuria or polydipsia. [] Lymphatic: Denies swollen glands. [] Psychiatric: positive depression Heart Score: C/O Chest Pain: N/A Risk Factors: Risk Factors: DM, Current or recent (<one month) smoker, HTN, HLP, family history of CAD, obesity. Risk Scores: Score 0 - 3: 2.5% MACE over next 6 weeks - Discharge Home Score 4 - 6: 20.3% MACE over next 6 weeks - Admit for Clinical Observation Score 7 - 10: 72.7% MACE over next 6 weeks - Early Invasive Strategies Allergies: Allergies: Allergies Coded Allergies Type Severity Reaction Last Updated Verified Iodine and Iodide Containing Produc Allergy Intermediate hives 04/22/17 Yes Penicillins Allergy Intermediate Hives 06/09/18 Yes broccoli Allergy Intermediate 06/05/18 Yes morphine Allergy Intermediate 06/05/18 Yes shellfish derived Allergy Intermediate 06/05/18 Yes chlorpromazine Adverse Reaction Intermediate sweats 04/22/17 Yes Physical Exam: PE: Constitutional: Well developed, well nourished, no acute distress, non-toxic appearance. [] HENT: Normocephalic, atraumatic, bilateral external ears normal, oropharynx moist, no oral exudates, nose normal. [] Eyes: PERRLA, EOMI, conjunctiva normal, no discharge. [] Neck: Normal range of motion, no tenderness, supple, no stridor. [] Cardiovascular:Heart rate regular rhythm, no murmur [] Lungs & Thorax: Bilateral breath sounds clear to auscultation [] Abdomen: Bowel sounds normal, soft, no tenderness, no masses, no pulsatile masses. [] Skin: Warm, dry, no erythema, no rash. [] Back: No tenderness, no CVA tenderness. [] Extremities: No tenderness, no cyanosis, no clubbing, ROM intact, no edema. [] Neurologic: Alert and oriented X 3, normal motor function, normal sensory function, no focal deficits noted. [] Psychologic: Affect normal, judgement normal, mood normal. [] Current Patient Data: Vital Signs: Vital Signs Date Time Temp Pulse Resp B/P (MAP) Pulse Ox O2 Delivery O2 Flow Rate FiO2 11/11/20 04:50 98.6 80 20 135/78 (97) 100 Room Air 98.6 EKG: EKG: [] Radiology/Procedures: Radiology/Procedures: [] Course & Med Decision Making: Course & Med Decision Making Pertinent Labs and Imaging studies reviewed. (See chart for details) []Evaluated by pat team. [facility] will no accept patient. Patient does not inpatient placement. Patient will be given resources. Patient discharge. Rx refilled and sent to pharmacy. Anayaon Disclaimer: Flakita Disclaimer: This electronic medical record was generated, in whole or in part, using a voice recognition dictation system. Departure Departure Impression: Primary Impression: Depression Additional Impression: Medication refill Disposition: 01 DC HOME SELF CARE/HOMELESS Condition: STABLE Referrals: NO PCP (PCP) Patient Instructions: Depression, Adult, Medication Refill, Emergency Department Scripts Apixaban (ELIQUIS) 5 Mg Tablet 5 MG PO BID, #60 TAB Prov: MONY MERRITT DO 11/11/20 Levetiracetam (KEPPRA) 500 Mg Tablet 1 TAB PO BID for 30 Days, #60 TAB 0 Refills 1 tab in AM 2 tabs in PM Prov: MONY MERRITT DO 11/11/20 MONY MERRITT DO Nov 11, 2020 05:30
[2020-11-11] MEDS ORDERED: APIX5TAB PO (05:36)
[2020-11-11] MEDS ORDERED: LEVE500T56 PO (05:36)
[2020-11-11 06:27] VITALS: BP 129/69
== END 2020-11-11 07:00 | disposition home or self-care (01) ==
LOC: ER 04:48
DX: F32.9 Major depressive disorder, single episode, unspecified (principal); M19.90 Unspecified osteoarthritis, unspecified site; E78.00 Pure hypercholesterolemia, unspecified; I25.2 Old myocardial infarction; F20.9 Schizophrenia, unspecified; F17.200 Nicotine dependence, unspecified, uncomplicated; Z90.89 Acquired absence of other organs; Z98.890 Other specified postprocedural states; Z91.040 Latex allergy status; Z88.0 Allergy status to penicillin; Z91.013 Allergy to seafood; Z88.6 Allergy status to analgesic agent; Z88.8 Allergy status to other drugs, medicaments and biological substances
CPT/HCPCS: 99284

== ENCOUNTER 2020-11-17 23:26 | Emergency (ER) | payer MEDICAID ==
[~2020-11-17] VITALS: Ht 172.7 cm; Wt 80.0 kg
[~2020-11-17 23:26] MED LIST changes: +APIX5TAB PO
[2020-11-17 23:30] VITALS: BP 112/72
[2020-11-18] MEDS ORDERED: IBUPROFEN 200 MG TABLET. PO ONE
[2020-11-18] MEDS ORDERED: ORPHENADRINE CITRATE 60 MG/2 ML VIAL. IM ONE
[2020-11-18] MEDS ORDERED: NAPR-695 PO (00:06)
[2020-11-18] MEDS ORDERED: ORPH100T PO (00:06)
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
== END 2020-11-18 00:10 | disposition home or self-care (01) ==
LOC: ER 23:26
DX: S76.812A Strain of other specified muscles, fascia and tendons at thigh level, left thigh, initial encounter (principal); M19.90 Unspecified osteoarthritis, unspecified site; F32.9 Major depressive disorder, single episode, unspecified; E78.00 Pure hypercholesterolemia, unspecified; I25.2 Old myocardial infarction; F20.9 Schizophrenia, unspecified; F17.200 Nicotine dependence, unspecified, uncomplicated; Z90.89 Acquired absence of other organs; Z98.890 Other specified postprocedural states; Z91.041 Radiographic dye allergy status; Z88.0 Allergy status to penicillin; Z88.6 Allergy status to analgesic agent; Z91.013 Allergy to seafood; Z88.8 Allergy status to other drugs, medicaments and biological substances; Y29.XXXA Contact with blunt object, undetermined intent, initial encounter; Y93.89 Activity, other specified; Y92.89 Other specified places as the place of occurrence of the external cause; Y99.8 Other external cause status
CPT/HCPCS: 96372; 99283; J2360

== ENCOUNTER 2020-12-21 14:07 | Emergency (ER) | payer MEDICAID ==
[~2020-12-21] VITALS: Ht 180.3 cm; Wt 72.7 kg
[~2020-12-21 14:07] MED LIST changes: +NAPR-695 PO; +ORPH100T PO
[2020-12-21 14:23] VITALS: BP 123/78
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
[2020-12-21 14:58] LABS: ACETAMIN < 2 mcg/ml (10-30); ETHANOL < 10 mg/dL (0-10); SALIC 2.8 mg/dL (2.8-20.0)
[2020-12-21 15:49] LABS: AMPHETAMINE/METHAMPHETAMINE POS (NEG); BARBITURATES NEG (NEG); BENZODIAZEPINES NEG (NEG); CANNABINOIDS NEG (NEG); COCAINE NEG (NEG); METHADONE NEG (NEG); OPIATES NEG (NEG); PHENCYCLIDINE NEG (NEG)
--- NOTE | 2020-12-24 09:47 | NUR ---
Attempted to contact pt concerning COVID results. No answer. No voicemail.
== END 2020-12-21 18:34 | disposition home or self-care (01) ==
LOC: ER 14:07
DX: Z20.822 Contact with and (suspected) exposure to COVID-19 (principal); F22 Delusional disorders; E78.00 Pure hypercholesterolemia, unspecified; I25.2 Old myocardial infarction; F20.9 Schizophrenia, unspecified; G40.909 Epilepsy, unspecified, not intractable, without status epilepticus; F32.9 Major depressive disorder, single episode, unspecified; F17.200 Nicotine dependence, unspecified, uncomplicated; Z95.5 Presence of coronary angioplasty implant and graft; Z88.0 Allergy status to penicillin; Z88.5 Allergy status to narcotic agent; Z91.013 Allergy to seafood; Z91.041 Radiographic dye allergy status; Z88.8 Allergy status to other drugs, medicaments and biological substances
CPT/HCPCS: 36415; 80307; 80329; 99283; G0480; U0003; U0005

== ENCOUNTER 2020-12-28 18:47 | Emergency (ER) | payer MEDICAID ==
[~2020-12-28] VITALS: Ht 180.3 cm; Wt 72.3 kg
--- NOTE | 2020-12-28 20:41 | PHYS DOC ---
Past Medical History Past Medical History: Arthritis, CAD, Depression, High Cholesterol, [place], S eizure, Schizophrenia, Other Additional Past Medical Histor: PTSD,GASTRITIS,MILD INTELLECTUAL,L VENT EF LO W,EPILEPSY Past Surgical History: Angioplasty, Other Additional Past Surgical Histo: CARDIAC STENTS,L LEG BX Smoking Status: Current Every Day Smoker Additional Information: < 0.25 PPD Alcohol Use: None Drug Use: None General Adult EDM: Chief Complaint: WEAKNESS/GENERALIZED HPI: HPI: Patient is a 40 year old male with a past medical history of CAD, Depression, hyperlipidemia presents to the hospital by EMS for evaluation. Per triage patient complained of Covid-like symptoms-loss of taste and smell since this afternoon after receiving his second Covid shot. Patient stated for 2 weeks he has had a sore throat runny nose diarrhea and felt weak. When I examined the patient he tells me he does not recall what he told the nurse at triage. Patient tells me he is homeless. When I asked if he just needs a place to stay he acknowledged yes and asked if he could just "sleep in the room" Patient denied any homicidal or suicidal ideations. Patient's vital signs are stable. Review of Systems: Review of Systems: Constitutional: Denies fever or chills. [] Eyes: Denies change in visual acuity. [] HENT: Denies nasal congestion or sore throat. [] Respiratory: Denies cough or shortness of breath. [] Cardiovascular: Denies chest pain or edema. [] GI: Denies abdominal pain, nausea, vomiting, bloody stools or diarrhea. [] : Denies dysuria. [] Musculoskeletal: Denies back pain or joint pain. [] Integument: Denies rash. [] Neurologic: Denies headache, focal weakness or sensory changes. [] Endocrine: Denies polyuria or polydipsia. [] Lymphatic: Denies swollen glands. [] Psychiatric: Denies depression or anxiety. [] Heart Score: C/O Chest Pain: N/A Risk Factors: Risk Factors: DM, Current or recent (<one month) smoker, HTN, HLP, family history of CAD, obesity. Risk Scores: Score 0 - 3: 2.5% MACE over next 6 weeks - Discharge Home Score 4 - 6: 20.3% MACE over next 6 weeks - Admit for Clinical Observation Score 7 - 10: 72.7% MACE over next 6 weeks - Early Invasive Strategies Allergies: Allergies: Allergies Coded Allergies Type Severity Reaction Last Updated Verified Iodine and Iodide Containing Produc Allergy Intermediate hives 04/22/17 Yes Penicillins Allergy Intermediate Hives 06/09/18 Yes broccoli Allergy Intermediate 06/05/18 Yes morphine Allergy Intermediate 06/05/18 Yes shellfish derived Allergy Intermediate 06/05/18 Yes coconut Allergy Unknown 12/21/20 Yes peanut Allergy Unknown 12/21/20 Yes chlorpromazine Adverse Reaction Intermediate sweats 04/22/17 Yes Physical Exam: PE: General: alert, no acute distress. Skin: warm, dry and intact. Head:: Normocephalic, atraumatic. Neck: Trachea midline. Eyes: EOMI, Normal conjunctiva, No drainage CARDIOVASCULAR: Regular rate and rhythm RESPIRATORY: No respiratory distress Back: Full range of motion. MUSCULOSKELETAL: Full range of motion of bilateral upper and lower extremities. GASTROINTESTINAL: Abdomen soft without rebound or guarding. NEUROLOGICAL: Alert and noted to person, place and time. No neurological deficits observed Psychiatric: Cooperative. Normal judgment Current Patient Data: Vital Signs: Vital Signs Date Time Temp Pulse Resp B/P (MAP) Pulse Ox O2 Delivery O2 Flow Rate FiO2 12/28/20 19:45 72 12 95/54 (68) 96 12/28/20 19:13 98.3 Room Air 98.3 EKG: EKG: [] Radiology/Procedures: Radiology/Procedures: [] Course & Med Decision Making: Course & Med Decision Making Pertinent Labs and Imaging studies reviewed. (See chart for details) [] Patient observed. Patient ambulated with a steady gait. Patient was discharged Dragon Disclaimer: Flakita Disclaimer: This electronic medical record was generated, in whole or in part, using a voice recognition dictation system. Departure Departure Impression: Primary Impression: Encounter for medical screening examination Disposition: HOME / SELF CARE / HOMELESS Condition: STABLE Referrals: NO PCP (PCP) Patient Instructions: Medical Screening Exam MONY MERRITT I DO December 28, 2020 20:41
[2020-12-29 01:22] VITALS: BP 102/51
== END 2020-12-29 01:23 | disposition home or self-care (01) ==
LOC: ER 18:47
DX: Z00.00 Encounter for general adult medical examination without abnormal findings (principal); J02.9 Acute pharyngitis, unspecified; R09.89 Other specified symptoms and signs involving the circulatory and respiratory systems; R19.7 Diarrhea, unspecified; M19.90 Unspecified osteoarthritis, unspecified site; I25.10 Atherosclerotic heart disease of native coronary artery without angina pectoris; F32.9 Major depressive disorder, single episode, unspecified; E78.00 Pure hypercholesterolemia, unspecified; I25.2 Old myocardial infarction; F20.9 Schizophrenia, unspecified; G40.909 Epilepsy, unspecified, not intractable, without status epilepticus; F17.200 Nicotine dependence, unspecified, uncomplicated; E78.5 Hyperlipidemia, unspecified; Z98.61 Coronary angioplasty status; Z88.0 Allergy status to penicillin; Z91.010 Allergy to peanuts; Z91.013 Allergy to seafood; Z88.8 Allergy status to other drugs, medicaments and biological substances
CPT/HCPCS: 99285